=== PATIENT | female | born 1960 | race Caucasian/White ===

== ENCOUNTER 2016-04-24 06:19 | Inpatient (IN) | payer OTHER ==
[~2016-04-24] VITALS: Ht 162.6 cm; Wt 72.7 kg
[2016-04-24] MEDS ORDERED: SODIUM CHLORIDE 0.9% 1,000 ML IV ONE (06:43)
[2016-04-24] MEDS ORDERED: ONDANSETRON 2MG/ML, 2ML IVPush ONE (07:00)
[2016-04-24] MEDS ORDERED: KETOROLAC 30 MG/1 ML IVPush ONE (07:00)
[2016-04-24] MEDS ORDERED: KETOROLAC 30 MG/1 ML ONE (07:01)
[2016-04-24] MEDS ORDERED: MORPHINE SULFATE 4 MG/ML, 1ML ONE ×2 (07:01→10:35)
[2016-04-24] MEDS ORDERED: ONDANSETRON 2MG/ML, 2ML ONE ×2 (07:02→15:57)
[2016-04-24 07:14] LABS: HEMOGLOBIN 12.9 g/dL (11.7-16.4)
[2016-04-24] MEDS: MORPHINE SULFATE 4 MG/ML, 1ML IVPush PRN ×2 (07:14→10:37)
[2016-04-24] MEDS ORDERED: OMEP-110 PO (07:21)
[2016-04-24 07:27] LABS: BLOOD UREA NITROGEN 22 mg/dL (7-18)
[2016-04-24 07:30] LABS: ASPARTATE AMINO TRANSFERASE 22 U/L (15-37)
[2016-04-24 08:36] LABS: PATH.CAST-FLAG NOT PRESENT; SPERM-FLAG NOT PRESENT; SRC-FLAG NOT PRESENT; XTAL-FLAG NOT PRESENT; YLC-FLAG NOT PRESENT
[2016-04-24] MEDS ORDERED: CEFTRIAXONE PMX 1GM/50ML 50 ML ONE (09:16)
[2016-04-24] MEDS ORDERED: CEFTRIAXONE PMX 1GM/50ML 50 ML IVPB ONE (09:30)
[2016-04-24] MEDS ORDERED: SODIUM CHLORIDE 0.9% 1,000ML IVBOLUS ONE (09:30)
[2016-04-24] MEDS ORDERED: BISACODYL 10 MG SUPP PR PRN (12:00)
[2016-04-24] MEDS ORDERED: MORPHINE SULFATE 4 MG/ML, 1ML IVPush PRN (12:00)
[2016-04-24] MEDS ORDERED: ONDANSETRON 2MG/ML, 2ML IVP PRN (12:00)
[2016-04-24] MEDS ORDERED: POLYETHYLENE GLYCOL 17 GM PACKET PO PRN (12:00)
[2016-04-24] MEDS ORDERED: ENALAPRILAT 1.25 MG/ML, 2ML IVPush PRN (12:00)
[2016-04-24] MEDS ORDERED: CEFTRIAXONE PMX 1GM/50ML 50 ML IV SCH (12:00)
[2016-04-24] MEDS ORDERED: ACETAMINOPHEN 325 MG TABLET PO PRN (12:00)
[2016-04-24] MEDS ORDERED: ACETAMINOPHEN 325 MG SUPP ONE (12:37)
[2016-04-24] MEDS ORDERED: ACETAMINOPHEN 650 MG SUPP PR PRN (13:00)
[2016-04-24] MEDS ORDERED: OMNIPAQUE 350 MG/ML, 50 ML BOTTLE IV ONE (15:30)
[2016-04-24] MEDS ORDERED: FENTANYL PF 100 MCG/2ML ONE (15:54)
[2016-04-24] MEDS ORDERED: PROPOFOL 10 MG/ML, 20ML ONE (15:57)
[2016-04-24] MEDS ORDERED: SUCCINYLCHOLINE 20 MG/ML, 10ML ONE (15:57)
[2016-04-24] MEDS ORDERED: METOCLOPRAMIDE 5 MG/ML, 2ML ONE (15:57)
[2016-04-24] MEDS ORDERED: DEXAMETHASONE 4 MG/ML, 1ML ONE (15:57)
[2016-04-24] MEDS ORDERED: ROCURONIUM 10 MG/ML ONE (15:57)
[2016-04-24] MEDS ORDERED: MIDAZOLAM 1 MG/ML, 2ML IV PRN (16:30)
[2016-04-24] MEDS ORDERED: hydrALAzine 20 MG/ML, 1ML IV PRN (16:30)
[2016-04-24] MEDS ORDERED: PROMETHAZINE 25 MG/ML, 1ML IV PRN (16:30)
[2016-04-24] MEDS ORDERED: FENTANYL PF 100 MCG/2ML IV PRN (16:30)
[2016-04-24] MEDS ORDERED: LABETALOL 5MG/ML, 20ML IV PRN (16:30)
[2016-04-24] MEDS ORDERED: ONDANSETRON 2MG/ML, 2ML IVPush PRN (16:30)
[2016-04-24] MEDS ORDERED: MEPERIDINE/PF 25MG/0.5ML IVPush PRN (16:30)
[2016-04-24] MEDS ORDERED: OXYcodone 5 MG/5 ML ORAL.SOL UDC PO PRN (16:30)
[2016-04-24] MEDS ORDERED: HYDROmorphone 1 MG/ML, 1ML IV PRN (16:30)
[2016-04-24] MEDS ORDERED: OXYcodone 5 MG/5 ML ORAL.SOL UDC ONE (16:49)
[2016-04-24 18:30] VITALS: BP 111/67
[2016-04-24] MEDS ORDERED: POTASSIUM CHLORIDE 40 MEQ in SODIUM CHLORIDE 0.9% 500 ML IV ONE (19:00)
[2016-04-24] MEDS: SODIUM CHLORIDE 0.9% 1,000 ML IV SCH ×2 (19:36→19:46)
[2016-04-24] MEDS: CEFTRIAXONE PMX 1GM/50ML 50 ML IV SCH (21:36)
[2016-04-25] MEDS: SODIUM CHLORIDE 0.9% 1,000 ML IV SCH ×2 (00:54→04:41)
[2016-04-25 03:44] VITALS: BP 124/72
[2016-04-25 05:42] LABS: HEMOGLOBIN 11.2 g/dL (11.7-16.4)
[2016-04-25 06:04] LABS: ASPARTATE AMINO TRANSFERASE 22 U/L (15-37); BLOOD UREA NITROGEN 16 mg/dL (7-18)
[2016-04-25 06:16] LABS: DIFF TOTAL CELLS COUNTED 100 CELL DIFF
[2016-04-25 06:18] LABS: VERIFY COUNTS? YES
[2016-04-25 06:59] VITALS: BP 111/70
[2016-04-25] MEDS: PANTOPRAZOLE 40 MG IV IVP SCH (08:15)
[2016-04-25] MEDS: CEFTRIAXONE PMX 1GM/50ML 50 ML IV SCH ×2 (09:20→21:36)
[2016-04-25 13:33] VITALS: BP 116/69
[2016-04-25] MEDS: ENOXAPARIN 40 MG/0.4 ML SQ SCH (13:44)
[2016-04-25 16:17] VITALS: BP 122/64
[2016-04-25 18:44] VITALS: BP 120/72
[2016-04-25 23:54] VITALS: BP 111/64
[2016-04-26 03:38] VITALS: BP 127/75
[2016-04-26 05:08] LABS: HEMOGLOBIN 10.2 g/dL (11.7-16.4)
[2016-04-26 05:16] LABS: ASPARTATE AMINO TRANSFERASE 27 U/L (15-37); BLOOD UREA NITROGEN 15 mg/dL (7-18)
[2016-04-26 05:33] LABS: DIFF TOTAL CELLS COUNTED 100 CELL DIFF
[2016-04-26 05:34] LABS: VERIFY COUNTS? YES
[2016-04-26] MEDS: OXYcodone IR 5MG TABLET PO PRN ×2 (05:38→21:24)
[2016-04-26 07:49] VITALS: BP 127/70
[2016-04-26] MEDS: CEFTRIAXONE PMX 1GM/50ML 50 ML IV SCH ×2 (09:35→21:24)
[2016-04-26] MEDS: PANTOPRAZOLE 40 MG IV IVP SCH (09:35)
[2016-04-26 11:44] VITALS: BP 150/86
[2016-04-26] MEDS: ENOXAPARIN 40 MG/0.4 ML SQ SCH (13:13)
[2016-04-26 17:19] VITALS: BP 145/81
[2016-04-26] MEDS: DOCUSATE 100 MG CAPSULE PO PRN (18:25)
[2016-04-26 19:41] VITALS: BP 153/77
[2016-04-27] VITALS: BP 137/75
[2016-04-27 03:58] VITALS: BP 155/77
[2016-04-27] MEDS: OXYcodone IR 5MG TABLET PO PRN (05:01)
[2016-04-27 05:55] LABS: HEMOGLOBIN 10.6 g/dL (11.7-16.4)
[2016-04-27 06:29] LABS: BLOOD UREA NITROGEN 11 mg/dL (7-18)
[2016-04-27 08:25] VITALS: BP 152/87
[2016-04-27] MEDS ORDERED: POTASSIUM CHLORIDE 20 MEQ TAB.ER.PRT PO SCH (09:00)
[2016-04-27] MEDS: CEFTRIAXONE PMX 1GM/50ML 50 ML IV SCH (09:40)
[2016-04-27] MEDS: PANTOPRAZOLE 40 MG IV IVP SCH (09:40)
[2016-04-27] MEDS: DOCUSATE 100 MG CAPSULE PO PRN (09:40)
[2016-04-27] MEDS ORDERED: MAGNESIUM SULFATE PMX 2GM/50ML 50 ML IV ONE (12:00)
[2016-04-27] MEDS ORDERED: OXYC5TAB3 PO (12:23)
[2016-04-27] MEDS ORDERED: LACT1CAP24 PO (12:23)
[2016-04-27] MEDS ORDERED: CEFD300C2 PO (12:23)
[2016-04-27] MEDS: ENOXAPARIN 40 MG/0.4 ML SQ SCH (12:25)
[2016-04-27 13:39] VITALS: BP 138/82
[2016-04-27 15:02] VITALS: BP 151/79
== END 2016-04-27 15:46 | disposition home or self-care (01) | DRG 872 ==
LOC: ED 08:57 → EDIP 09:25 → 4NOR 18:13
PROVIDERS: ADMIT Internal Medicine; ATTEND Internal Medicine
PROC: 0T768DZ Dilation of Right Ureter with Intraluminal Device, Via Natural or Artificial Opening Endoscopic (ICD-10-PCS; principal; 2016-04-24 15:30)
DX: A41.9 Sepsis, unspecified organism (principal); N17.9 Acute kidney failure, unspecified; R65.20 Severe sepsis without septic shock; N39.0 Urinary tract infection, site not specified; N13.2 Hydronephrosis with renal and ureteral calculous obstruction; E78.00 Pure hypercholesterolemia, unspecified; E78.5 Hyperlipidemia, unspecified; K21.9 Gastro-esophageal reflux disease without esophagitis; E87.6 Hypokalemia; E83.42 Hypomagnesemia; D64.9 Anemia, unspecified; K76.9 Liver disease, unspecified; Z80.49 Family history of malignant neoplasm of other genital organs; Z82.0 Family history of epilepsy and other diseases of the nervous system; Z88.1 Allergy status to other antibiotic agents
CPT/HCPCS: 36415; 36556; 74000; 74176; 74420; 80048; 80053; 80061; 81001; 82306; 82607; 83036; 83605; 83690; 83735; 84439; 84443; 84550; 85025; 87040; 87077; 87086; 87186; 96365; 96375; 96376; J0696; J1100; J1650; J1885; J2405; J2704; J3010; J3480; Q9967; C1758; C1769; C2617; C9113; J0330; J2765; J3475; J7030; J7040

== ENCOUNTER → 2016-05-14 | Outpatient (CLI) | payer OTHER ==
[~2016-05-14] MED LIST: CEFD300C2 PO; LACT1CAP24 PO; OMEP-110 PO; OXYC5TAB3 PO
[2016-05-14 10:44] LABS: PATH.CAST-FLAG NOT PRESENT; SPERM-FLAG NOT PRESENT; SRC-FLAG NOT PRESENT; XTAL-FLAG NOT PRESENT; YLC-FLAG NOT PRESENT
== END | disposition home or self-care (01) ==
LOC: STAR 09:15
PROVIDERS: ATTEND Urology
DX: Z01.818 Encounter for other preprocedural examination (principal); N20.0 Calculus of kidney
CPT/HCPCS: 81003; 87077; 87086; 87186

== ENCOUNTER 2016-05-22 05:38 | Day surgery (SDC) | payer OTHER ==
[~2016-05-22] VITALS: Ht 165.1 cm; Wt 69.0 kg
[2016-05-22 06:09] VITALS: BP 138/83
[2016-05-22] MEDS ORDERED: MIDAZOLAM 1 MG/ML, 2ML ONE (07:13)
[2016-05-22] MEDS ORDERED: FENTANYL PF 100 MCG/2ML ONE ×2 (07:13→09:05)
[2016-05-22] MEDS ORDERED: PROPOFOL 10 MG/ML, 20ML ONE (07:24)
[2016-05-22] MEDS ORDERED: DEXAMETHASONE 4 MG/ML, 1ML ONE (07:24)
[2016-05-22] MEDS ORDERED: ONDANSETRON 2MG/ML, 2ML ONE (07:24)
[2016-05-22] MEDS ORDERED: CEFAZOLIN 1,000 MG ONE (07:24)
[2016-05-22] MEDS ORDERED: METOCLOPRAMIDE 5 MG/ML, 2ML ONE (07:24)
[2016-05-22] MEDS ORDERED: ACETAMINOPHEN 325 MG TABLET PO PRN (08:00)
[2016-05-22] MEDS ORDERED: PROMETHAZINE 25 MG/ML, 1ML IV PRN (08:00)
[2016-05-22] MEDS ORDERED: OXYcodone 5 MG/5 ML ORAL.SOL UDC PO PRN (08:00)
[2016-05-22] MEDS ORDERED: HYDROmorphone 1 MG/ML, 1ML IV PRN (08:00)
[2016-05-22] MEDS ORDERED: ONDANSETRON 2MG/ML, 2ML IV PRN (08:30)
[2016-05-22] MEDS ORDERED: OXYcodone/APAP 5/325MG TABLET PO PRN (08:30)
[2016-05-22] MEDS ORDERED: KETOROLAC 30 MG/1 ML IV PRN (08:30)
[2016-05-22] MEDS ORDERED: KETOROLAC 30 MG/1 ML ONE (08:46)
[2016-05-22] MEDS ORDERED: OXYcodone 5 MG/5 ML ORAL.SOL UDC ONE (08:46)
[2016-05-22] MEDS ORDERED: ACETAMINOPHEN 325 MG TABLET ONE (08:46)
[2016-05-22] MEDS: FENTANYL PF 100 MCG/2ML IV PRN ×2 (09:05→09:15)
== END 2016-05-22 11:15 | disposition home or self-care (01) ==
LOC: OUT 05:38
PROVIDERS: ATTEND Urology
DX: N20.2 Calculus of kidney with calculus of ureter (principal); K21.9 Gastro-esophageal reflux disease without esophagitis; E78.00 Pure hypercholesterolemia, unspecified; Z87.440 Personal history of urinary (tract) infections; Z90.49 Acquired absence of other specified parts of digestive tract
CPT/HCPCS: 52353; 74000; 76000; 82360; 88300; C1758; C1769; J0690; J1100; J1885; J2250; J2405; J2704; J2765; J3010